=== PATIENT | female | born 1955 | race Caucasian/White ===

== ENCOUNTER 2019-03-09 10:26 | Emergency (ER) | payer OTHER ==
--- NOTE | 2019-03-09 10:45 | UC ---
Dizzy HPI HPI Summary: Patient is 63 year old female, who present today to the urgent care with dizziness since yesterday. She reports that she woke up and noticed the room spinning around her. She does feel some congestion and postnasal drip and she took Flonase today morning without much improvement. She took Mucinex yesterday with some improvement in her symptoms.. Dizziness is described as room spinning around her with intermittent symptoms, this is positional. Denies any nausea or throwing up.e. Denies any fever, chills, cough, chest pain or shortness of breath . No diaphoresis. Denies any abdominal pain , nausea or vomiting , diarrhea or constipation. - History Of Current Complaint Stated Complaint: DIZZINESS Time Seen by Provider: 03/09/19 10:39 Hx Obtained From: Patient ?: No - Allergies/Home Medications Allergies/Adverse Reactions: Allergies Allergy/AdvReac Type Severity Reaction Status Date / Time No Known Allergies Allergy Verified 03/09/19 10:53 Home Medications: Home Medications Escitalopram Oxalate [Lexapro 10 mg] 10 mg PO DAILY 03/09/19 [History Confirmed 03/09/19] guaiFENesin [Mucinex] 600 mg PO Q8HR 03/09/19 [History Confirmed 03/09/19] PMH/Surg Hx/FS Hx/Imm Hx - Additional Past Medical History Additional PMH: Past Medical History : MVP,nodules on thyroid, pancreatic cyst, hepatitis Past Surgical History: Hysterectomy Family History : non contributory Social History : Weekly alcohol, non smoker, no drug use. Previously Healthy: Yes - Family History Known Family History: Positive: Non-Contributory Review of Systems All Other Systems Reviewed And Are Negative: Yes Constitutional: Positive: Negative Skin: Positive: Negative Eyes: Positive: Negative ENT: Positive: Sinus Congestion, Other - Vertigo. Negative: Sore Throat Respiratory: Positive: Negative. Negative: Cough Cardiovascular: Positive: Negative Gastrointestinal: Positive: Negative Genitourinary: Positive: Negative Motor: Positive: Negative Neurovascular: Positive: Negative Musculoskeletal: Positive: Negative Neurological: Positive: Negative, Other - dizziness Psychological: Positive: Negative Is Patient Immunocompromised?: No Physical Exam - Summary Physical Exam Summary: Physical Exam: Const: Appears well. No signs of apparent distress present. Alert and oriented x 3. Musculo: Walks with a normal gait. Head/Face: Atraumatic, normocephalic on inspection. Eyes: EOMI and PERRLA in both eyes. Conjunctivae clear. No discharge noted ENT: Hearing normal, TM normal appearing bilaterally, non bulging , non erythematous . No tenderness on palpation / manipulation of Tragus. No mastoid tenderness. No tenderness to palpation on maxillary and frontal sinus. No pharyngeal erythema or exudates . No posts posterior nasal drip Uvula is midline. No cervical or submandibular lymphadenopathy noted. Respiratory: Respirations are unlabored. Lungs clear to auscultation bilaterally, no wheezing , rhonchi or rales noted . CVS: Regular rate and Rhythm, S1S2 normal , no murmurs identified. Extremities: Peripheral circulation is grossly normal. Pulses 2+ Abdomen : Soft non tender , nondistended , Bowel sounds present . No guarding , rebound tenderness or rigidity noted. Skin: No lesions or rash located on the upper extremities or on the lower extremities. Neuro: Cranial nerves II to XII intact, motor and sensory intact. DTR Intact bilaterally. Mood is normal. Affect is normal. GCS: 15 [place] [facility] stroke scale: Negative Triage Information Reviewed: Yes Vital Signs Reviewed: Yes Dizzy Course/Dx - Course Course Of Treatment: During the visit today, we obtained EKG: Sinus. No ST changes We discussed the findings - vertigo/ congestion , BPPV. I will prescribe the medication to the pharmacy . She is from [place] and will follow with her primary care doctor tomorrow and also plan to follow with ENT. Strict return precautions discussed.. Patient expressed understanding . - Differential Dx/Diagnosis Provider Diagnosis: Vertigo, BPPV (benign paroxysmal positional vertigo) Discharge ED - Sign-Out/Discharge Documenting (check all that apply): Patient Departure All imaging exams completed and their final reports reviewed: No Studies - Discharge Plan Condition: Stable Disposition: HOME Prescriptions: Meclizine TAB* [Antivert 12.5 TAB*] 25 mg PO TID PRN 7 Days #21 tab PRN Reason: Dizziness predniSONE [Prednisone 20 MG TAB] 40 mg PO DAILY #6 tablet Patient Education Materials: Vertigo (ED), Benign Paroxysmal Positional Vertigo (ED) Forms: *Work Release Referrals: No Primary Care Phys,NOPCP [Primary Care Provider] - Additional Instructions: Please start taking the medication as prescribed to the pharmacy . Follow up with your primary care doctor tomorrow. Follow up with ENT in [facility] Patients blood pressure slightly high in Urgent care today , plan follow up with PCP for better control Return to Urgent care / ER if symptoms get worse. - Billing Disposition and Condition Condition: STABLE Disposition: Home
[2019-03-09 10:53] VITALS: BP 153/79
== END 2019-03-09 11:35 | disposition home or self-care (01) ==
LOC: UCEAST 10:26
DX: H81.10 Benign paroxysmal vertigo, unspecified ear (principal)
CPT/HCPCS: 93005; 99202; G0463